=== PATIENT | female | born 1995 | race Caucasian/White ===

== ENCOUNTER 2019-05-08 15:15 | Emergency (ER) | payer SELFPAY ==
[~2019-05-08] VITALS: Ht 172.7 cm; Wt 79.5 kg
[2019-05-08] MEDS ORDERED: ESTROGEN PO (15:25)
[2019-05-08] MEDS ORDERED: BUPR100 PO (15:25)
[2019-05-08] MEDS ORDERED: SPIR25 PO (15:25)
[2019-05-08] MEDS ORDERED: PROG50VI5 IM (15:25)
[2019-05-08] MEDS ORDERED: ACETAMINOPHEN 500 MG TABLET PO ONE (16:00)
[2019-05-08] MEDS ORDERED: KETOROLAC TROMETHAMINE 60 MG/2 ML VIAL IM ONE (16:00)
[2019-05-08] MEDS ORDERED: PENICILLIN V POTASSIUM 500 MG TABLET PO ONE (16:00)
[2019-05-08 16:47] LABS: INFLUENZA TYPE A NEGATIVE FOR TYPE A (NEGATIVE); INFLUENZA TYPE B NEGATIVE FOR TYPE B (NEGATIVE)
[2019-05-08 16:48] VITALS: BP 116/62
== END 2019-05-08 17:16 | disposition home or self-care (01) ==
LOC: EMS 15:18
DX: M60.9 Myositis, unspecified (principal); F19.10 Other psychoactive substance abuse, uncomplicated; F17.210 Nicotine dependence, cigarettes, uncomplicated; F32.9 Major depressive disorder, single episode, unspecified; Z79.899 Other long term (current) drug therapy
CPT/HCPCS: 87804; 96372; 99283; 99406; J1885

== ENCOUNTER 2022-10-06 19:35 | Emergency (ER) | payer MEDICAID, OTHER ==
[~2022-10-06] VITALS: Ht 177.8 cm; Wt 75.0 kg
[~2022-10-06 19:35] MED LIST: BUPR-345 PO; ESTROGEN PO; PROG50VI5 IM; SPIR-37 PO
[2022-10-06 19:39] VITALS: BP 104/70
[2022-10-06] MEDS ORDERED: DOXYCYCLINE HYCLATE 100 MG TABLET PO ONE (20:15)
[2022-10-06] MEDS ORDERED: DOXY-354 PO (20:36)
== END 2022-10-06 20:45 | disposition home or self-care (01) ==
LOC: EMS 19:35
DX: T81.49XA Infection following a procedure, other surgical site, initial encounter (principal); L03.114 Cellulitis of left upper limb; F32.A Depression, unspecified; F17.210 Nicotine dependence, cigarettes, uncomplicated; Y92.89 Other specified places as the place of occurrence of the external cause
CPT/HCPCS: 99283